=== PATIENT | male | born 1965 | race Caucasian/White ===

== ENCOUNTER 2019-04-02 08:21 | Emergency (ER) | payer BC ==
[2019-04-02 08:48] LABS: ABSOLUTE NEUTROPHIL COUNT 5.31; BASO % 0.1 % (0-6); EOS % 0.3 % (0-6); GRAN % 69.2 % (47-80); HEMATOCRIT 44.2 % (42.0-52.0); HEMOGLOBIN 15.4 gm/dl (14.0-18.0); LYMPH % 20.4 % (16-45); MEAN CELL VOLUME 89.1 fl (81-97); MEAN CORPUSCULAR HGB CONC 34.8 g/dl (32-36); MEAN PLATELET VOLUME 10.7 fl (7.4-10.4); PLATELET COUNT 313 K/uL (130-400); RED BLOOD COUNT 4.96 M/uL (4.40-5.70); RED CELL DISTRIBUTION WIDTH 12.9 % (11.5-14.5); WHITE BLOOD COUNT W/O DIFF 7.7 K/uL (4.2-12.2)
[2019-04-02] MEDS ORDERED: DILTIAZEM 25MG/5ML VIAL IV ONE (08:50)
[2019-04-02 08:57] LABS: BLOOD UREA NITROGEN 14 mg/dL (6-20); EST GLOMERULAR FILTRATION RATE > 60 mL/min
[2019-04-02 08:59] LABS: INR 1.1; PARTIAL THROMBOPLASTIN TIME 28.5 SECONDS (24.5-39.1); PROTHROMBIN TIME (PATIENT) 11.4 SECONDS (9.5-12.1)
[2019-04-02 09:00] LABS: GLUCOSE,RANDOM 169 mg/dL (74-109)
[2019-04-02 09:04] LABS: CKMB 2.4 ng/mL (<6.73)
[2019-04-02 09:15] LABS: THYROID STIMULATING HORMONE 4.18 uIU/mL (0.270-4.20)
--- NOTE | 2019-04-02 09:18 | Emergency Department Record ---
History of Present Illness - General Chief Complaint: General Stated Complaint: ELECTRICAL SHOCK Time Seen by Provider: 04/02/19 08:42 Source: Patient Mode of Arrival: Ambulatory Limitations: No limitations - History of Present Illness Initial Comments: pt was shocked at work a week ago. since that time he has had palptitations at night. he has had a hx of chronic afib and is on a beta shilo and eliquis. he has had no cp MD Complaint: Palpitations Onset/Timin -: Days(s) Context: Occurred during rest Arrythmia History: Atrial fibrillation, On anti-coagulants Associated Symptoms: Denies other symptoms Treatments Prior to Arrival: Beta-shilo - Related Data Home Medications Medication Instructions Recorded Confirmed Last Taken Apixaban [Eliquis] 5 mg PO BID 04/02/19 04/02/19 Unknown Docusate Sodium [Stool Softener] 100 mg PO TID 04/02/19 04/02/19 Unknown Ergocalciferol (Vitamin D2) 50,000 unit PO WEEKLY 04/02/19 04/02/19 Unknown [Vitamin D2] Fenofibrate 160 mg PO DAILY 04/02/19 04/02/19 Unknown Hydrochlorothiazide [Hctz] 12.5 mg PO DAILY 04/02/19 04/02/19 Unknown L.acidoph,Paracasei, B.lactis 1 each PO DAILY 04/02/19 04/02/19 Unknown [Probiotic] Levothyroxine Sodium [Synthroid] 175 mcg PO DAILY 04/02/19 04/02/19 Unknown Metoprolol Succinate 50 mg PO DAILY 04/02/19 04/02/19 Unknown Multivit-Min/FA/Lycopen/Lutein 1 each PO DAILY 04/02/19 04/02/19 Unknown [Centrum Silver Men Tablet] Previous Rx's Medication Instructions Recorded Metoprolol Succinate 25 mg PO DAILY #20 tab.er.24h 04/02/19 Allergies Allergy/AdvReac Type Severity Reaction Status Date / Time codeine Allergy BEHAVIORAL Verified 04/02/19 08:29 CHANGES Travel/Exposure Screening - Travel/Exposure Within Last 30 Days Have you traveled within the last 30 days?: No - Additonal Travel/Exposure Details Have you been exposed to anyone with a communicable illness?: No Review of Systems Reviewed: No additional complaints except as noted below Constitutional: Reports: As per HPI. Denies: Chills, Fever, Malaise, Night sweats, Weakness, Weight change Eyes: Reports: As per HPI. Denies: Eye discharge, Eye pain, Photophobia, Vision change ENT: Reports: As per HPI. Denies: Congestion, Dental pain, Ear pain, Epistaxis, Hearing loss, Throat pain Respiratory: Reports: As per HPI. Denies: Cough, Dyspnea, Hemoptysis, Stridor, Wheezes Cardiovascular: Reports: As per HPI, Palpitations. Denies: Arrhythmia, Chest pain, Dyspnea on exertion, Edema, Murmurs, Orthopnea, Paroxysmal nocturnal dyspnea, Rheumatic Fever, Syncope Endocrine: Reports: As per HPI. Denies: Fatigue, Heat or cold intolerance, Polydipsia, Polyuria Gastrointestinal: Reports: As per HPI. Denies: Abdominal pain, Constipation, Diarrhea, Hematemesis, Hematochezia, Melena, Nausea, Vomiting Genitourinary: Reports: As per HPI. Denies: Dysuria, Frequency, Hematuria, Incontinence, Retention, Testicular pain, Testicular mass, Urgency Musculoskeletal: Reports: As per HPI. Denies: Arthralgia, Back pain, Gout, Joint swelling, Myalgia, Neck pain Skin: Reports: As per HPI. Denies: Bruising, Change in color, Change in hair/nails, Lesions, Pruritus, Rash Neurological: Reports: As per HPI. Denies: Abnormal gait, Confusion, Headache, Numbness, Paresthesias, Seizure, Tingling, Tremors, Vertigo, Weakness Psychiatric: Reports: As per HPI. Denies: Anxiety, Auditory hallucinations, Depression, Homicidal thoughts, Suicidal thoughts, Visual hallucinations Hematological/Lymphatic: Reports: As per HPI. Denies: Anemia, Blood Clots, Easy bleeding, Easy bruising, Swollen glands Past Medical History - SOCIAL HISTORY Smoking Status: Never smoker Alcohol Use: None Drug Use: None - RESPIRATORY Hx Respiratory Disorders: No - CARDIOVASCULAR Hx Cardio Disorders: No Hx Irregular Heartbeat: Yes (afib) - NEURO Hx Neuro Disorders: No - GI Hx GI Disorders: No - Hx Genitourinary Disorders: No - ENDOCRINE Hx Endocrine Disorders: No - MUSCULOSKELETAL Hx Musculoskeletal Disorders: No - PSYCH Hx Psych Problems: No - HEMATOLOGY/ONCOLOGY Hx Hematology/Oncology Disorders: No Family Medical History Any Significant Family History?: No Physical Exam - General General Appearance: Alert, Oriented x3, Cooperative, Mild distress - Head Head exam: Normal inspection - Eye Eye exam: Normal appearance, PERRL, EOMI Pupils: Normal accommodation - ENT ENT exam: Normal exam, Mucous membranes moist, Normal external ear exam, Normal orophraynx Ear exam: Normal external inspection. negative: External canal tenderness Nasal Exam: Normal inspection. negative: Discharge, Sinus tenderness Mouth exam: Normal external inspection, Tongue normal Teeth exam: Normal inspection. negative: Dental caries Throat exam: Normal inspection. negative: Tonsillar erythema, Tonsillar exudate - Neck Neck exam: Normal inspection, Full ROM. negative: Tenderness - Respiratory Respiratory exam: Normal lung sounds bilaterally. negative: Respiratory distress - Cardiovascular Cardiovascular Exam: Normal heart sounds, Irregular rhythm, Tachycardia - GI/Abdominal GI/Abdominal exam: Soft, Normal bowel sounds. negative: Tenderness - Rectal Rectal exam: Deferred - exam: Deferred - Extremities Extremities exam: Normal inspection, Full ROM, Normal capillary refill. negative: Tenderness - Back Back exam: Reports: Normal inspection, Full ROM. Denies: Muscle spasm, Rash noted, Tenderness - Neurological Neurological exam: Alert, CN II-XII intact, Normal gait, Oriented X3 - Psychiatric Psychiatric exam: Normal affect, Normal mood - Skin Skin exam: Dry, Intact, Normal color, Warm Course Vital Signs 04/02/19 04/02/19 08:23 09:06 Temperature 98.3 F Pulse Rate 104 H Pulse Rate [ 112 H [employer] ] Respiratory 20 18 Rate Blood Pressure 151/102 Blood Pressure 130/80 [Left Arm] Pulse Ox 99 99 - Reevaluation(s) Reevaluation #1: 04/02/19 10:41 pts hr has slowed to 90. pt d/w dr workman who stated to increase pts metoprolol to 75mg a day Medical Decision Making - Lab Data Result diagrams: 04/02/19 08:35 04/02/19 08:35 Lab Results 04/02/19 04/02/19 04/02/19 Range/Units 08:35 08:35 08:35 WBC 7.7 (4.2-12.2) K/uL RBC 4.96 (4.40-5.70) M/uL Hgb 15.4 (14.0-18.0) gm/dl Hct 44.2 (42.0-52.0) % MCV 89.1 (81-97) fl MCH 31.0 (27-33) pg MCHC 34.8 (32-36) g/dl RDW 12.9 (11.5-14.5) % Plt Count 313 (130-400) K/uL MPV 10.7 H (7.4-10.4) fl Gran % 69.2 (47-80) % Lymphocytes % 20.4 (16-45) % Monocytes % 10.0 H (0-9) % Eosinophils % 0.3 (0-6) % Basophils % 0.1 (0-6) % Absolute Neutrophils 5.31 PT 11.4 (9.5-12.1) SECONDS INR 1.1 APTT 28.5 (24.5-39.1) SECONDS Sodium 138 (136-145) mmol/L Potassium 4.2 (3.4-4.5) mmol/L Chloride 104 (98-107) mmol/L Carbon Dioxide 22.0 (22-29) mmol/L Anion Gap 12.0 (7-16) BUN 14 (6-20) mg/dL Creatinine 1.0 (0.7-1.2) mg/dL Estimated GFR > 60 mL/min Random Glucose 169 H (74-109) mg/dL Calcium 9.4 (8.6-10.0) mg/dL CK-MB (CK-2) 2.4 (<6.73) ng/mL Troponin T < 0.010 (0-0.010) ng/mL Disposition Disposition: Discharge Clinical Impression: Chronic a-fib, Atrial fibrillation with rapid ventricular response Disposition: Home, Self-Care Condition: (1) Good Instructions: A-fib (Atrial Fibrillation) (ED) Additional Instructions: follow up with dr workman next week without fail. return sooner if worse. increase metoprolol to 25mg in am and 50mg in pm Prescriptions: Metoprolol Succinate 25 mg PO DAILY #20 tab.er.24h Forms: Patient Portal Access Quality - Quality Measures Quality Measures: N/A - Blood Pressure Screening Does Patient Have Any of the Following: Active Dx of HTN Blood Pressure Classification: Hypertensive Reading Systolic Measurement: 151 Diastolic Measurement: 102 Screening for High Blood Pressure: Patient Exclusion, Hx of HTN [G9744]
[2019-04-02] MEDS ORDERED: METOPROLOL SUCC 50 MG TABLET PO ONE (10:40)
== END 2019-04-02 10:58 | disposition home or self-care (01) ==
LOC: ER 08:21
DX: I48.20 Chronic atrial fibrillation, unspecified (principal); I10 Essential (primary) hypertension; Z79.01 Long term (current) use of anticoagulants
CPT/HCPCS: 80048; 82553; 84443; 84484; 85025; 85610; 85730; 93005; 93010; 96374; 99284